=== PATIENT | male | born 1965 ===

== ENCOUNTER 2021-11-15 13:54 | Outpatient (CLI) | payer OTHER | END 2021-11-15 13:55 | disposition home or self-care (01) | LOC: CSHLAB 13:54 | PROVIDERS: ATTEND Internal Medicine Gastroenterology | DX: Z20.822 Contact with and (suspected) exposure to COVID-19 (principal) | CPT/HCPCS: 87811 ==

== ENCOUNTER 2021-11-20 07:36 | Day surgery (SDC) | payer OTHER ==
[2021-11-16 10:40] VITALS: BMI 23.4
[2021-11-20] MEDS ORDERED: Lidocaine 1% MPF 2 ML VIAL ONE (09:01)
[2021-11-20] MEDS ORDERED: PROPOFOL 20 ML ONE (09:12)
== END 2021-11-20 10:21 | disposition home or self-care (01) ==
LOC: CSHSDC 07:36
PROVIDERS: ATTEND Internal Medicine Gastroenterology
PROC: 0DJD8ZZ Inspection of Lower Intestinal Tract, Via Natural or Artificial Opening Endoscopic (ICD-10-PCS; principal; 2021-11-20)
DX: Z12.11 Encounter for screening for malignant neoplasm of colon (principal); K64.9 Unspecified hemorrhoids; I10 Essential (primary) hypertension; R73.03 Prediabetes; Z20.822 Contact with and (suspected) exposure to COVID-19; Z86.010 Personal history of colon polyps; Z87.891 Personal history of nicotine dependence; Z98.890 Other specified postprocedural states
CPT/HCPCS: J2704